=== PATIENT | female | born 1930 | race Caucasian/White ===

== ENCOUNTER 2017-02-22 09:51 | Emergency (ER) | payer OTHER ==
[2017-02-22 10:07] VITALS: BP 160/72
--- NOTE | 2017-02-22 11:48 | EDM.PDOC ---
ED HPI GENERAL MEDICAL PROBLEM - General Chief Complaint: Chest Pain Stated Complaint: FELL,RIB PAIN Time Seen by Provider: 02/22/17 09:58 Source of Information: Reports: RN ([facility]), RN Notes Reviewed History Limitations: Reports: Other (Dementia) - History of Present Illness INITIAL COMMENTS - FREE TEXT/NARRATIVE: [place]. She has dementia. She is visited by a [facility] nurse weekly. When checked on today, the patient was found to be grimacing and moaning, while clutching the right side of her chest whenever she moved. The patient's son told the [facility] nurse that he heard the patient fall around 01:00 this morning. He found the patient on the floor, and helped her back to bed. At this time, the patient states that she has no pain if she remains still. The [facility] nurse states that the patient has a history of dizziness. Her ability to perform her ADLs has been decreasing over the past few weeks, and they are working on placement presently. Right Chest Pain Score (Numeric/FACES): 4 - Related Data Allergies Allergy/AdvReac Type Severity Reaction Status Date / Time Iodinated Contrast Media - Allergy Anaphylactic Verified 02/22/17 10:08 Oral and Shock [Iodinated Contrast Media - IV Dye] Penicillins Allergy Cannot Verified 02/22/17 10:08 Remember iv contrast dye Allergy Anaphylactic Uncoded 06/30/15 13:02 Shock Home Meds: Home Meds Carbidopa/Levodopa [Carbidopa-Levodopa 25-100] 50 - 200 mg PO BID 03/13/15 [ History] Lisinopril 10 mg PO DAILY 03/13/15 [History] Sertraline [Zoloft] 50 mg PO DAILY 03/13/15 [History] Donepezil [Aricept] 5 mg PO BEDTIME 02/22/17 [History] Propranolol [Inderal] 40 mg PO BID 02/22/17 [History] Past Medical History HEENT History: Reports: Impaired Vision Other HEENT History: wears glasses Cardiovascular History: Reports: Hypertension Gastrointestinal History: Reports: GERD Genitourinary History: Reports: Urinary Incontinence (stress) 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: Musculoskeletal History: Reports: Arthritis Neurological History: Reports: Parkinson's, Other (See Below) (Dementia) Psychiatric History: Reports: Depression - Infectious Disease History Infectious Disease History: Reports: Chicken Pox, Measles, Mumps - Past Surgical History Female Surgical History: Reports: Section, Hysterectomy Other Musculoskeletal Surgeries/Procedures:: back surgery Social & Family History - Tobacco Use Smoking Status *Q: Never Smoker Second Hand Smoke Exposure: No - Caffeine Use Caffeine Use: Reports: Coffee - Alcohol Use Alcohol Use History: No - Recreational Drug Use Recreational Drug Use: No - Living Situation & Occupation Living situation: Reports: , with family (Son) Occupation: retired (Lives with her son.) ED ROS GENERAL - Review of Systems Review Of Systems: See Below Constitutional: Reports: Other (Decreasing ability to perform ADL's) HEENT: Reports: No Symptoms Respiratory: Reports: No Symptoms Cardiovascular: Reports: No Symptoms Endocrine: Reports: No Symptoms GI/Abdominal: Reports: No Symptoms : Reports: No Symptoms Musculoskeletal: Reports: No Symptoms Skin: Reports: No Symptoms Neurological: Reports: Dizziness Psychiatric: Reports: No Symptoms Hematologic/Lymphatic: Reports: No Symptoms Immunologic: Reports: No Symptoms ED EXAM, GENERAL - Physical Exam Exam: See Below Exam Limited By: No Limitations General Appearance: Alert, WD/WN, No Apparent Distress Eye Exam: Bilateral Eye: Normal Inspection Ears: Normal External Exam, Hearing Grossly Normal Ear Exam: Bilateral Ear: Auricle Normal Nose: Normal Inspection, No Blood Throat/Mouth: Normal Inspection, Normal Lips, Normal Voice, No Airway Compromise Head: Atraumatic, Normocephalic Neck: Normal Inspection, Full Range of Motion Respiratory/Chest: No Respiratory Distress, Lungs Clear, Normal Breath Sounds, No Accessory Muscle Use, Other (Tenderness to palpation of the right fifth and sixth ribs. No visible abnormality, such as erythema, ecchymosis, abrasion, or laceration. No crepitus to palpation.). No: Pleural Rub Cardiovascular: Normal Peripheral Pulses, Regular Rate, Rhythm, No Gallop, No JVD, No Murmur, No Rub Peripheral Pulses: 4+: Radial (L), Radial (R) GI/Abdominal: Normal Bowel Sounds, Soft, Non-Tender, No Organomegaly, No Distention, No Abnormal Bruit, No Mass (Female) Exam: Deferred Rectal (Female) Exam: Deferred Back Exam: Normal Inspection, Full Range of Motion, NT Extremities: Normal Inspection, Normal Range of Motion, No Pedal Edema, Normal Capillary Refill Neurological: Alert, No Motor/Sensory Deficits Psychiatric: Normal Affect Skin Exam: Warm, Dry, Intact, Normal Color, No Rash Lymphatic: No Adenopathy Course - Vital Signs Last Recorded V/S: Last Vital Signs Temp 36.7 C 02/22/17 10:01 Pulse 60 02/22/17 10:01 Resp 12 02/22/17 10:01 BP 160/72 H 02/22/17 10:01 Pulse Ox 95 02/22/17 10:01 - Orders/Labs/Meds Meds: Medications Discontinued Medications Generic Name Dose Route Start Last Admin Trade Name Lizbeth PRN Reason Stop Dose Admin Ibuprofen 400 mg 02/22/17 11:49 Motrin PO 02/22/17 11:50 ONETIME ONE - Radiology Interpretation Free Text/Narrative:: Two-view chest radiograph appears to be grossly normal. Cardiac silhouette is within normal limits. No pulmonary vascular congestion. No pleural effusions. No focal infiltrate. No pneumothorax. There is likely some atelectasis in the posterior sulcus. Hyperinflation and bilateral diaphragmatic flattening, consistent with COPD, noted. Formal read per the Radiologist pending. - Re-Assessments/Exams Free Text/Narrative Re-Assessment/Exam: 02/22/17 11:47 Today's chest radiographs show no evidence of rib fractures, or, more poorly, consequences of rib fractures, such as pneumothorax or hemothorax. The treatment will be pain management. Given the patient's age, dementia, and fall risk, I do not believe opioids would be appropriate. Similarly, I would ordinarily prescribe an incentive spirometer, but given the patient's dementia, I don't believe that she would have the mental capacity to use it properly. I am recommending ibuprofen. Departure - Departure Time of Disposition: 11:49 Disposition: Home, Self-Care 01 Condition: fair Clinical Impression: Fall at home, Chest wall contusion - Discharge Information Instructions: Fall Prevention in the Home, [id number], Chest Contusion, Easy- to-Read Referrals: Earnest Oneal MD [Primary Care Provider] - Forms: ED Department Discharge Additional Instructions: Ms. Mederos was seen in the emergency room after falling and injuring her right chest early this morning. Workup in the ER included a chest x-ray, whhich shows no signs of broken ribs, collapsed lung, or blood in the chest. We recommend giving [id number] ibuprofen 2 tablets (400 mg) every 8 hours , with food, as needed for discomfort. If any other problems, please do not hesitate to return to the ER.
[2017-02-22] MEDS ORDERED: Ibuprofen 400 MG Tab PO ONE (11:49)
--- NOTE | 2017-02-22 11:51 | CR ---
Chest: Two views of the chest were obtained. Comparison: Previous chest x-ray of 03/13/15. Heart size and mediastinum are normal. Minimal atelectasis is seen within the left base. Lungs are hyperinflated compatible with emphysematous change. No acute appearing infiltrates are seen. No pneumothorax is identified. Bony structures are osteopenic. Mild degenerative change and kyphosis is present within the spine. Impression: 1. Findings as described above. Nothing acute is appreciated on two-view chest x-ray. Diagnostic code #2
[2017-02-22] MEDS ORDERED: Ibuprofen 400 MG Tab ONE (12:49)
== END 2017-02-22 12:25 | disposition home or self-care (01) ==
LOC: SUPCPDRO 09:51 → JD.ED 09:51
DX: S20.211A Contusion of right front wall of thorax, initial encounter (principal); W19.XXXA Unspecified fall, initial encounter; I10 Essential (primary) hypertension; K21.9 Gastro-esophageal reflux disease without esophagitis; M19.90 Unspecified osteoarthritis, unspecified site; F32.9 Major depressive disorder, single episode, unspecified; Z79.899 Other long term (current) drug therapy; Z90.710 Acquired absence of both cervix and uterus; Z98.890 Other specified postprocedural states; Z88.0 Allergy status to penicillin; Z91.041 Radiographic dye allergy status
CPT/HCPCS: 71020; 99284; A9270; 99282

== ENCOUNTER 2018-12-10 17:05 | Emergency (ER) | payer OTHER ==
[2018-12-10 17:32] VITALS: BP 145/67
--- NOTE | 2018-12-10 17:35 | EDM.PDOC ---
ED HPI GENERAL MEDICAL PROBLEM - General Chief Complaint: Fever Stated Complaint: FLU SX Time Seen by Provider: 12/10/18 17:29 Source of Information: Reports: Other (care worker.) History Limitations: Reports: Altered Mental Status (Patient has suffered severe dementia and therefore is not able to provide any useful history.) - History of Present Illness INITIAL COMMENTS - FREE TEXT/NARRATIVE: 88-year-old female brought to the ED by care worker from the clinic where she was seen. Identified to have a fever of 101.5 at that institution that apparently started this morning. Patient has severe dementia and is therefore not able to offer any useful history. She lives at [facility]. Apparently there are 2 rather patients there that are influenza positive. It is believed that Jennifer did receive a flu shot this year. She does have a relatively productive sounding cough. She has eaten only a little bit of pudding so far today. There's been no nausea vomiting or diarrhea. Onset: Today Onset Date: 12/10/18 (Apparently had a low-grade fever this morning that spiked as the day went on. Development of productive cough as well. He denies headache at this time) Duration: Hour(s): Location: Reports: Chest (Productive cough) Quality: Reports: Other Severity: Moderate (Fever of 101.5.) Improves with: Reports: None Worsens with: Reports: None Context: Reports: Sick Contact, Other (Spontaneous occurrence of fever with a cough.). Denies: Activity, Exercise, Lifting (Possibly at [place] where she resides.), Trauma Associated Symptoms: Reports: Cough, cough w sputum, Fever/Chills (Sounds productive at times), Loss of Appetite, Malaise, Other (Very lethargic. She usually can walk on her own and she required 2 person assistance to get from the wheelchair to the bed.). Denies: Chest Pain, Diaphoresis, Headaches ( complaining of chills at the time of my exam.), Nausea/Vomiting, Rash, Seizure, Syncope Treatments CANE WEIGHER: Reports: Other (see below) (None.) - Related Data Allergies Allergy/AdvReac Type Severity Reaction Status Date / Time Iodinated Contrast- Oral and Allergy Anaphylactic Verified 12/10/18 17:32 IV Dye Shock [Iodinated Contrast Media - IV Dye] meclizine Allergy Other Verified 02/27/19 17:32 Penicillins Allergy Cannot Verified 12/10/18 17:32 Remember primidone Allergy Other Verified 12/10/18 17:32 iv contrast dye Allergy Anaphylactic Uncoded 12/10/18 17:32 Shock Home Meds: Home Meds Carbidopa/Levodopa [Carbidopa-Levodopa 25-100] 50 - 200 mg PO BID 03/13/15 [ History] Lisinopril 10 mg PO DAILY 03/13/15 [History] Sertraline [Zoloft] 50 mg PO DAILY 03/13/15 [History] Donepezil [Aricept] 5 mg PO BEDTIME 02/22/17 [History] Propranolol [Inderal] 40 mg PO BID 02/22/17 [History] Furosemide [Lasix] 40 mg PO DAILY #30 tab 12/10/18 [Rx] Oseltamivir [Tamiflu] 75 mg PO BID #9 cap 12/10/18 [Rx] Past Medical History HEENT History: Reports: Impaired Vision Other HEENT History: wears glasses Cardiovascular History: Reports: Hypertension Gastrointestinal History: Reports: GERD Genitourinary History: Reports: Urinary Incontinence (stress) 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: Musculoskeletal History: Reports: Arthritis Neurological History: Reports: Parkinson's, Other (See Below) (Dementia) Psychiatric History: Reports: Depression - Infectious Disease History Infectious Disease History: Reports: Chicken Pox, Measles, Mumps - Past Surgical History Female Surgical History: Reports: Section, Hysterectomy Other Musculoskeletal Surgeries/Procedures:: back surgery Social & Family History - Caffeine Use Caffeine Use: Reports: Coffee - Living Situation & Occupation Living situation: Reports: , with Family Occupation: Retired ED ROS GENERAL - Review of Systems Review Of Systems: Unable To Obtain (Impossible to get a good history as she has dementia and says yes to almost every question.) Constitutional: Reports: Fever, Chills, Malaise, Weakness, Fatigue (Cannot walk on her own as she usually is able to do so.), Decreased Appetite HEENT: Reports: Glasses Respiratory: Reports: Cough, Sputum (Productive sounding cough at times.) Cardiovascular: Reports: Blood Pressure Problem. Denies: Chest Pain ED EXAM, SEPSIS - Physical Exam Exam: See Below Exam Limited By: Altered Mental Status (Has significant dementia with associated Parkinson's disease.) General Appearance: Other (She does feel very warm to palpation. She tries to answer questions she appears to be quite hard of hearing as well.) Eye Exam: Bilateral Eye: Normal Inspection Ears: Normal TMs Throat/Mouth: Normal Lips, Other (Tongue is mildly dry and coated.) Head: Atraumatic, Normocephalic Neck: Normal Inspection, Limited Range of Motion, Tender Lateral. No: Lymphadenopathy (L) (Seems does some tenderness on palpation lateral neck bilaterally. Range of motion is decreased from the norm), Lymphadenopathy (R) Respiratory/Chest: No Respiratory Distress, Lungs Clear, No Accessory Muscle Use , Wheezing (Occasional expiratory wheeze mostly from the right lung field.) Cardiovascular: Regular Rate, Rhythm, No Edema, No Gallop, No Murmur, No Rub Peripheral Pulses: 2+: Posterior Tibial (L), Posterior Tibial (R), Dorsalis Pedis (L), Dorsalis Pedis (R) GI/Abdominal Exam: No Organomegaly ( with no obvious organomegaly.), Distended ( The abdomen is diffusely distended and tympanitic to percussion compatible with aerophagia.), Abnormal Bowel Sounds (Bowel sounds are quite active in all 4 quadrants), Other (The abdomen is firm to palpation) (Female) Exam: Other (She smells of urinary tract infection or clothing contaminated with old urine.) Back: Decreased Range of Motion, Other (Mild kyphosis thoracic spine) Extremities: Other (She cannot walk on her own. She can barely stand alone in a 2 person assist to get her to the bed. I could find no active synovitis of any of her joints. She has evidence of osteophytic changes in both knees both hips) Neurological: Other (She does have a masklike feces. He does have cogwheel rigidity in her upper extremities.). No: Oriented, Normal Cognition, Normal Gait, Normal Reflexes Psychiatric: Flat Affect Skin: Warm, Dry, Intact, Normal Color, No Rash Course - Vital Signs Last Recorded V/S: Last Vital Signs Temp 38.3 C H 12/10/18 17:25 Pulse 76 12/10/18 17:25 Resp 18 12/10/18 17:25 BP 145/67 H 12/10/18 17:25 Pulse Ox 98 12/10/18 17:25 - Orders/Labs/Meds Orders: Active Orders 24 hr Category Date Time Status EKG Documentation Completion [RC] STAT Care 12/10/18 17:36 Active CULTURE BLOOD [BC] Stat Lab 12/10/18 17:50 Received CULTURE BLOOD [BC] Stat Lab 12/10/18 18:00 Received Blood Culture x2 Reflex Set [OM.PC] Stat Oth 12/10/18 17:37 Ordered Labs: Laboratory Tests 12/10/18 12/10/18 12/10/18 Range/Units 17:40 17:40 17:40 WBC 7.14 (3.98-10.04) K/mm3 RBC 3.99 (3.98-5.22) M/mm3 Hgb 12.1 (11.2-15.7) gm/L Hct 38.5 (34.1-44.9) % MCV 96.5 H (79.4-94.8) fl MCH 30.3 (25.6-32.2) pg MCHC 31.4 L (32.2-35.5) g/dl RDW Std Deviation 46.6 H (36.4-46.3) fL Plt Count 224 (182-369) K/mm3 MPV 9.8 (9.4-12.3) fl Neutrophils % (Manual) 60 (40-60) % Band Neutrophils % 0 (0-10) % Lymphocytes % (Manual) 27 (20-40) % Atypical Lymphs % 0 % Monocytes % (Manual) 13 H (2-10) % Eosinophils % (Manual) 0 L (0.7-5.8) % Basophils % (Manual) 0 L (0.1-1.2) Platelet Estimate Adequate RBC Morph Comment Normal PT 11.4 (9.5-12.1) SECONDS INR 1.05 Sodium 136 (136-145) mEq/L Potassium 4.8 (3.5-5.1) mEq/L Chloride 101 (98-107) mEq/L Carbon Dioxide 27 (21-32) mEq/L Anion Gap 12.8 (5-15) BUN 18 (7-18) mg/dL Creatinine 1.1 H (0.55-1.02) mg/dL Est Cr Clr Drug Dosing TNP Estimated GFR (MDRD) 47 (>60) mL/min BUN/Creatinine Ratio 16.4 (14-18) Glucose 109 (83-115) mg/dL Lactic Acid (0.4-2.0) mmol/L Calcium 9.6 (8.5-10.1) mg/dL Magnesium 2.1 (1.8-2.4) mg/dl Total Bilirubin 0.8 (0.2-1.0) mg/dL AST 22 (15-37) U/L ALT 19 (14-59) U/L Alkaline Phosphatase 134 H (46-116) U/L CK-MB (CK-2) 0.6 (0-3.6) ng/ml Troponin I 0.034 (0.00-0.056) ng/mL C-Reactive Protein 3.0 H* (<1.0) mg/dL NT-Pro-B Natriuret Pep (0-450) pg/mL Total Protein 8.7 H (6.4-8.2) g/dl Albumin 3.6 (3.4-5.0) g/dl Globulin 5.1 gm/dL Albumin/Globulin Ratio 0.7 L (1-2) Urine Color (Yellow) Urine Appearance (Clear) Urine pH (5.0-8.0) Ur Specific Pen[place] (1.005-1.030) Urine Protein (Negative) Urine Glucose (UA) (Negative) Urine Ketones (Negative) Urine Occult Blood (Negative) Urine Nitrite (Negative) Urine Bilirubin (Negative) Urine Urobilinogen (0.2-1.0) Ur Leukocyte Esterase (Negative) Urine RBC (0-5) /hpf Urine WBC (0-5) /hpf Ur Epithelial Cells (0-5) /hpf Urine Bacteria (FEW) /hpf Urine Mucus (FEW) /hpf 12/10/18 12/10/18 12/10/18 Range/Units 17:40 17:40 18:37 WBC (3.98-10.04) K/mm3 RBC (3.98-5.22) M/mm3 Hgb (11.2-15.7) gm/L Hct (34.1-44.9) % MCV (79.4-94.8) fl MCH (25.6-32.2) pg MCHC (32.2-35.5) g/dl RDW Std Deviation (36.4-46.3) fL Plt Count (182-369) K/mm3 MPV (9.4-12.3) fl Neutrophils % (Manual) (40-60) % Band Neutrophils % (0-10) % Lymphocytes % (Manual) (20-40) % Atypical Lymphs % % Monocytes % (Manual) (2-10) % Eosinophils % (Manual) (0.7-5.8) % Basophils % (Manual) (0.1-1.2) Platelet Estimate RBC Morph Comment PT (9.5-12.1) SECONDS INR Sodium (136-145) mEq/L Potassium (3.5-5.1) mEq/L Chloride (98-107) mEq/L Carbon Dioxide (21-32) mEq/L Anion Gap (5-15) BUN (7-18) mg/dL Creatinine (0.55-1.02) mg/dL Est Cr Clr Drug Dosing Estimated GFR (MDRD) (>60) mL/min BUN/Creatinine Ratio (14-18) Glucose (83-115) mg/dL Lactic Acid 0.8 (0.4-2.0) mmol/L Calcium (8.5-10.1) mg/dL Magnesium (1.8-2.4) mg/dl Total Bilirubin (0.2-1.0) mg/dL AST (15-37) U/L ALT (14-59) U/L Alkaline Phosphatase (46-116) U/L CK-MB (CK-2) (0-3.6) ng/ml Troponin I (0.00-0.056) ng/mL C-Reactive Protein (<1.0) mg/dL NT-Pro-B Natriuret Pep 1497 H (0-450) pg/mL Total Protein (6.4-8.2) g/dl Albumin (3.4-5.0) g/dl Globulin gm/dL Albumin/Globulin Ratio (1-2) Urine Color Yellow (Yellow) Urine Appearance Clear (Clear) Urine pH 7.0 (5.0-8.0) Ur Specific [place] 1.020 (1.005-1.030) Urine Protein Trace H (Negative) Urine Glucose (UA) Negative (Negative) Urine Ketones Negative (Negative) Urine Occult Blood Trace-intact H (Negative) Urine Nitrite Negative (Negative) Urine Bilirubin Negative (Negative) Urine Urobilinogen 1.0 (0.2-1.0) Ur Leukocyte Esterase Negative (Negative) Urine RBC 5-10 H (0-5) /hpf Urine WBC 0-5 (0-5) /hpf Ur Epithelial Cells 0-5 (0-5) /hpf Urine Bacteria Few (FEW) /hpf Urine Mucus Few (FEW) /hpf Meds: Medications Discontinued Medications Generic Name Dose Route Start Last Admin Trade Name Lizbeth PRN Reason Stop Dose Admin Acetaminophen 975 mg 12/10/18 17:38 12/10/18 18:02 Tylenol PO 12/10/18 17:39 975 mg NOW ONE Administration Furosemide 40 mg 12/10/18 20:18 12/10/18 20:33 Lasix PO 12/10/18 20:19 40 mg ONETIME ONE Administration Dextrose/Sodium Chloride 1,000 mls @ 125 mls/hr 12/10/18 17:45 12/10/18 18:02 Dextrose 5%-Normal Saline IV 125 mls/hr ASDIRECTED ALVIN Administration Oseltamivir Phosphate 75 mg 12/10/18 20:12 12/10/18 20:33 Tamiflu PO 12/10/18 20:13 75 mg ONETIME ONE Administration - Radiology Interpretation Free Text/Narrative:: 88-year-old female sent across from [facility] where she was seen with a temperature of 101.5. Apparently temperature started this morning. She is a resident of [facility] and has Parkinson's disease with associated dementia. Patient is there apparently are influenza positive. She does have a fever 101.5 here. She has a history of recurrent urinary tract infection however as well she does have a relatively productive sounding cough with good air entry to the bases with occasional expiratory wheeze. Plan influenza screen. She will be given Tylenol 975 mg by mouth for fever relief. IV will be D5 normal saline at 150 mils per hour since she has hardly ate or drank at all today. Urine smells strong like she may have an infection and a catheterization specimen will be obtained. Chest x-ray blood cultures and lactic acid levels done i.e. septic workup. - Re-Assessments/Exams Free Text/Narrative Re-Assessment/Exam: 12/10/18 18:39 The only thing back as far as her labs go hours or lactic acid at 0.8. Chest x-ray reveals no significant cardiac enlargement. There is diffuse vascular congestion with prominence of the hilar vessels. No defined pneumonia. 12/10/18 20:07 Labs reveal a normal white count at 7.14. Differential is 60% neutrophils and no bands reported. Hemoglobin is 12.1 with hematocrit of 38.5. MCV is 96.5. Platelet count is 224,000. PT is 11.4 with an INR of 1.05. Sodium is 136 with a potassium of 4.8. Chloride is 101 with a bicarbonate of 27. Anion gap is 12.8. BUN is 18 with a creatinine of 1.1. Estimated GFR is 47. BUN/ creatinine ratio is normal at 16.4. Glucose is 109 with lactic acid of 0.8 calcium was 9.6 magnesium is 2.1 bilirubin is 0.8. AST is 22 with an ALT of 19. Alkaline phosphatase is 134. CK-MB fraction is 0.6 with a troponin I of 0.034. C -reactive protein is 3.0 BNP is elevated at 1497. Total protein is 8.7 with an albumin fraction of 3.6. Urinalysis shows trace of protein trace of occult blood 5-10 RBCs per high-power field but no signs of infection. Influenza screen at present is negative. Suspect this may be a false negative. 12/10/18 20:19 decision made to allow her to go back to [facility] since we don't have any beds in the hospital. She will be started on Tamiflu tonight first dose given in the ED. She required Tamiflu 75 mg twice daily for the next 4 to half days. She needs to be isolated tiny droplet precautions to cough in her room for the next week as she would be considered contagious to others through cough. Still need fever management with Motrin 600 mg every 6 hours as needed for fever relief or Tylenol 650 mg every 4 hours for fever relief. Often the fever abates within 3 tablets of Tamiflu. Second problem is she is in mild to moderate congestive heart failure. She needs Lasix 40 mg every day with the first dose provided in the ED tonight. He needs follow-up in the clinic in a week's time to recheck congestive heart failure sooner if she remains febrile more than 4 days Departure - Departure Time of Disposition: 20:13 Disposition: Home, Self-Care 01 Condition: Fair Clinical Impression: Acute febrile illness, Influenza A virus not detected Congestive heart failure Qualifiers: Heart failure type: unspecified Heart failure chronicity: unspecified Qualified Code(s): I50.9 - Heart failure, unspecified - Discharge Information *PRESCRIPTION DRUG MONITORING PROGRAM REVIEWED*: Not Applicable *COPY OF PRESCRIPTION DRUG MONITORING REPORT IN PATIENT ED: Not Applicable Prescriptions: Furosemide [Lasix] 40 mg PO DAILY #30 tab Oseltamivir [Tamiflu] 75 mg PO BID #9 cap Instructions: Fever, Adult Referrals: Denis Izquierdo MD [Primary Care Provider] - Forms: ED Department Discharge Additional Instructions: Evaluation in the emergency room today in regards to development of acute febrile illness today. The working diagnosis is likely influenza type a as the viruses rampant in the community at present. Chest x-ray revealed no signs of pneumonia. Urinalysis done by catheterization showed no signs of infection. Benign abdominal examination. White count is in the normal range with a normal differential suggesting viral infection. The influenza screen done in the ED is negative however we find that if it's done within the first 24 hours of illness we often get a false negative result. She did receive medication for fever while in the ED. She will need to continue either Motrin 600 mg every 6 hours or Tylenol 650 mg every 4 hours for fever relief. She was started on Tamiflu 75 mg in the ED and she will need to continue his twice daily for another 4-1/2 days. She was also found to be in mild to moderate congestive heart failure with a BNP of 1475. She was given first dose of Lasix 40 mg in the ED and she will need to continue this once daily every morning. She requires follow-up in the clinic in 5-7 days time. She should be seen sooner if she is febrile in 4 days time. Usually Tamiflu will break the temperature within about 48 hours. Encourage fluids as appetite is usually extremely poor with the influenza virus infection. She may eat whatever she will eat. He should be confined her room with droplet precautions as she is contagious to others through cough. This should be for one week. - My Orders Last 24 Hours: My Active Orders 12/10/18 17:36 EKG Documentation Completion [RC] STAT 12/10/18 17:37 Blood Culture x2 Reflex Set [OM.PC] Stat 12/10/18 17:50 CULTURE BLOOD [BC] Stat 12/10/18 18:00 CULTURE BLOOD [BC] Stat - Assessment/Plan Last 24 Hours: My Active Orders 12/10/18 17:36 EKG Documentation Completion [RC] STAT 12/10/18 17:37 Blood Culture x2 Reflex Set [OM.PC] Stat 12/10/18 17:50 CULTURE BLOOD [BC] Stat 12/10/18 18:00 CULTURE BLOOD [BC] Stat
[2018-12-10] MEDS ORDERED: Acetaminophen 325 MG Tab PO ONE (17:38)
[2018-12-10] MEDS ORDERED: Dextrose 5%-0.9% NaCl 1,000 ML IV SCH (17:45)
[2018-12-10] MEDS ORDERED: Oseltamivir 75 MG Cap PO ONE (20:12)
[2018-12-10] MEDS ORDERED: Furosemide 40 MG Tab PO ONE (20:18)
--- NOTE | 2018-12-11 06:17 | CR ---
Chest: Frontal view of the chest was obtained utilizing portable technique. Comparison: Prior chest x-ray of 02/22/17. Heart size and mediastinum are within normal limits for portable technique. Lungs are clear with no acute parenchymal change. Slight widening of the mediastinum is seen most likely due to tortuous great vessels. Bony structures are osteopenic. Impression: 1. Incidental findings. Nothing acute is appreciated. Diagnostic code #2
== END 2018-12-10 20:46 | disposition home or self-care (01) ==
LOC: JD.ED 17:05
DX: R50.9 Fever, unspecified (principal); I11.0 Hypertensive heart disease with heart failure; I50.9 Heart failure, unspecified; G20 Parkinson's disease; F02.80 Dementia in other diseases classified elsewhere, unspecified severity, without behavioral disturbance, psychotic disturbance, mood disturbance, and anxiety; K21.9 Gastro-esophageal reflux disease without esophagitis; F32.9 Major depressive disorder, single episode, unspecified; Z79.899 Other long term (current) drug therapy; Z88.0 Allergy status to penicillin; Z88.8 Allergy status to other drugs, medicaments and biological substances; Z91.041 Radiographic dye allergy status
CPT/HCPCS: 36415; 71045; 80053; 81001; 82553; 83605; 83735; 83880; 84484; 85007; 85027; 85610; 86140; 87040; 87804; 93005; 96360; 96361; 99284; A9270; J7042; 93010

== ENCOUNTER 2019-06-17 16:37 | Emergency (ER) | payer MEDICARE, OTHER ==
--- NOTE | 2019-06-17 17:16 | EDM.PDOC ---
<Ihsan Riggs - Last Filed: 06/17/19 17:10> ED HPI GENERAL MEDICAL PROBLEM - General Chief Complaint: Lower Extremity Injury/Pain Stated Complaint: FALL,PAIN IN LEFT FOOT Time Seen by Provider: 06/17/19 16:47 - History of Present Illness INITIAL COMMENTS - FREE TEXT/NARRATIVE: Jennifer is an 89 year old female with past medical history positive for dementia and hearing loss who sustained a witnessed fall from height at approximately 4: 15 pm and is now complaining of left foot pain. She is accompanied by a care worker from her facility today. The care worker says that the patient did not hit her head or had any loss of consciousness after her fall. The care worker attempted to do ROM of the foot and noticed the patient wincing in pain. She could not bear weight at the care facility. Left Ankle Pain Score (Numeric/FACES): 4 - Related Data Allergies Allergy/AdvReac Type Severity Reaction Status Date / Time Iodinated Contrast Media Allergy Anaphylactic Verified 06/17/19 16:44 [Iodinated Contrast Media - Shock IV Dye] meclizine Allergy Other Verified 06/17/19 16:44 Penicillins Allergy Cannot Verified 06/17/19 16:44 Remember primidone Allergy Other Verified 06/17/19 16:44 iv contrast dye Allergy Anaphylactic Uncoded 06/17/19 16:44 Shock Home Meds: Home Meds Carbidopa/Levodopa [Carbidopa-Levodopa 25-100] 50 - 200 mg PO BID 03/13/15 [ History] Lisinopril 10 mg PO DAILY 03/13/15 [History] Sertraline [Zoloft] 50 mg PO DAILY 03/13/15 [History] Donepezil [Aricept] 5 mg PO BEDTIME 02/22/17 [History] Propranolol [Inderal] 40 mg PO BID 02/22/17 [History] Albuterol Sulfate [Albuterol Sulfate Hfa] 8.5 gm IH 06/17/19 [History] Albuterol [Ventolin HFA] 2 puff INH QID 06/17/19 [History] traMADol [Ultram] 50 mg PO Q6H PRN 06/17/19 [History] Past Medical History HEENT History: Reports: Impaired Vision Other HEENT History: wears glasses Cardiovascular History: Reports: Hypertension Respiratory History: Reports: None Gastrointestinal History: Reports: GERD Genitourinary History: Reports: Urinary Incontinence [employer]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: Musculoskeletal History: Reports: Arthritis Neurological History: Reports: Parkinson's, Other (See Below) Psychiatric History: Reports: Depression Endocrine/Metabolic History: Reports: None Hematologic History: Reports: None Immunologic History: Reports: None Oncologic (Cancer) History: Reports: None Dermatologic History: Reports: Other (See Below) Other Dermatologic History: rosacea - Infectious Disease History Infectious Disease History: Reports: Chicken Pox, Measles, Mumps - Past Surgical History Head Surgeries/Procedures: Reports: None Female Surgical History: Reports: Section, Hysterectomy Other Musculoskeletal Surgeries/Procedures:: back surgery Social & Family History - Family History Family Medical History: Noncontributory - Tobacco Use Smoking Status *Q: Never Smoker - Caffeine Use Caffeine Use: Reports: Coffee - Recreational Drug Use Recreational Drug Use: No - Living Situation & Occupation Living situation: Reports: , with Family Occupation: Retired Review of Systems - Review of Systems Review Of Systems: See Below Constitutional: Reports: No Symptoms Eyes: Reports: No Symptoms Ears: Reports: No Symptoms Nose: Reports: No Symptoms Mouth/Throat: Reports: No Symptoms Respiratory: Reports: No Symptoms Cardiovascular: Reports: No Symptoms GI/Abdominal: Reports: No Symptoms Genitourinary: Reports: No Symptoms Musculoskeletal: Reports: No Symptoms Skin: Reports: No Symptoms Neurological: Reports: No Symptoms, Other (Known Dementia) Psychiatric: Reports: No Symptoms ED EXAM, GENERAL - Physical Exam Exam: See Below Exam Limited By: Other (Dementia, hearing loss) General Appearance: Alert, WD/WN, No Apparent Distress Ears: Normal External Exam Nose: Normal Inspection Throat/Mouth: Normal Voice, No Airway Compromise Head: Atraumatic, Normocephalic Neck: Normal Inspection Respiratory/Chest: No Respiratory Distress, No Accessory Muscle Use Cardiovascular: Normal Peripheral Pulses Extremities: Normal Inspection, Normal Range of Motion, No Pedal Edema, Normal Capillary Refill, Other (Tenderness of the 1st metatarsal of the left foot. Skin intact, no noted ecchymosis. ) Neurological: Alert, Oriented Psychiatric: Normal Affect, Normal Mood Skin Exam: Warm, Dry, Intact, Normal Color, No Rash Course - Vital Signs Last Recorded V/S: Last Vital Signs Temp 97.5 F 06/17/19 16:52 Pulse 58 L 06/17/19 16:52 Resp 16 06/17/19 16:52 BP 117/58 L 06/17/19 16:52 Pulse Ox 96 06/17/19 16:52 - Orders/Labs/Meds Orders: Active Orders 24 hr Category Date Time Status Foot Comp Min 3V Lt [CR] Stat Exams 06/17/19 17:11 Taken Departure - Departure Disposition: Home, Self-Care 01 Clinical Impression: Sprain of left foot Qualifiers: Encounter type: initial encounter Qualified Code(s): S93.602A - Unspecified sprain of left foot, initial encounter - Discharge Information Referrals: Denis Izquierdo MD [Primary Care Provider] - 1 Week Forms: ED Department Discharge Additional Instructions: Ice your foot for 15 minutes 3 times per day for 2 days. Try to elevate your foot while laying down. Take tylenol or motrin for pain. Use an radha wrap on your ankle as needed for pain. - My Orders Last 24 Hours: My Active Orders 06/17/19 17:11 Foot Comp Min 3V Lt [CR] Stat - Assessment/Plan Last 24 Hours: My Active Orders 06/17/19 17:11 Foot Comp Min 3V Lt [CR] Stat <Rafael Horton - Last Filed: 06/17/19 18:06> Course - Re-Assessments/Exams Free Text/Narrative Re-Assessment/Exam: 06/17/19 18:00 I examined the patient myself and I agree with Ihsan's assessment and plan. I ordered an x-ray. The x-ray showed no fracture but she does have arthritis and osteopenia. Departure - Departure Time of Disposition: 18:05 Condition: Good - Discharge Information *PRESCRIPTION DRUG MONITORING PROGRAM REVIEWED*: No *COPY OF PRESCRIPTION DRUG MONITORING REPORT IN PATIENT ED: No
[2019-06-17 18:40] VITALS: BP 101/50
--- NOTE | 2019-06-17 19:40 | CR ---
Left foot: 4 views of the left foot were obtained. Plantar spur is noted. Mild degenerative change is noted within the mid foot. Prominent degenerative change with osteophytes is noted within the 1st MTP joint. Lucent line is identified on one view within the distal aspect of the proximal phalanx of the 5th digit and difficult to exclude a small nondisplaced fracture extending into the articular margin. No additional fracture or other bony abnormality is seen. Vascular calcification is noted. Impression: 1. Questionable fracture within the distal proximal phalanx of the 5th toe is seen on one view. Articular extension is noted. 2. Osteoporosis, degenerative change and plantar spur. Diagnostic code #3
== END 2019-06-17 18:35 | disposition home or self-care (01) ==
LOC: JD.ED 16:37
DX: S93.602A Unspecified sprain of left foot, initial encounter (principal); F32.9 Major depressive disorder, single episode, unspecified; Z88.0 Allergy status to penicillin; Z88.8 Allergy status to other drugs, medicaments and biological substances; Z91.041 Radiographic dye allergy status; Z79.51 Long term (current) use of inhaled steroids; Z79.899 Other long term (current) drug therapy; Z90.710 Acquired absence of both cervix and uterus; W17.89XA Other fall from one level to another, initial encounter
CPT/HCPCS: 73630-26-LT; 73630-LT; 99283-25